=== PATIENT | female | born 1955 | race Caucasian/White ===

== ENCOUNTER → 2016-09-18 | Outpatient (REF) | payer OTHER ==
[~2016-09-18] MED LIST: AMOXIL875 PO; BACTRIMDS PO; CIPRO500 PO; DARVOCET-N PO; DIFLUC150 PO; MOTRIN800 PO; PYRIDIU100 PO; TUSSIONEX PO
== END ==
LOC: M LAB REF 16:12
PROVIDERS: ATTEND Physician Assistant
DX: N39.0 Urinary tract infection, site not specified (principal)

== ENCOUNTER → 2017-01-17 | Outpatient (REF) | payer OTHER | LOC: M LAB REF 14:51 | PROVIDERS: ATTEND Physician Assistant | DX: R30.0 Dysuria (principal) ==

== ENCOUNTER → 2020-04-13 | Outpatient (CLI) | payer BC, OTHER ==
[~2020-04-13] MED LIST changes: +PROHANCE 279.3MG/ML 5ML VIAL As Ordered ONE
--- NOTE | 2020-04-13 13:43 | REPVR ---
PROCEDURE INFORMATION: Exam: MR Head Without and With Contrast; Internal Auditory Canals Exam date and time: 04/13/2020 12:13 PM Age: 64 years old Clinical indication: Other: Dima sensory neuro hearing loss TECHNIQUE: Imaging protocol: MR of the head without and with intravenous contrast. Exam focused on the internal auditory canals. 3D rendering (Not supervised by radiologist): MIP and/or 3D reconstructed images were created by the technologist. Contrast material: PROHANCE; Contrast volume: 10 ml; Contrast route: INTRAVENOUS (IV); COMPARISON: No relevant prior studies available. FINDINGS: Brain: There is no extra-axial collection or intra-axial mass. There are foci of increased T2 and FLAIR signal within the periventricular and subcortical white matter, nonspecific but typically small-vessel ischemia in this age group. There is no diffusion restriction. There is no abnormal enhancement within the brain. Ventricles: No ventriculomegaly. Mastoid air cells: Unremarkable. No effusions. Internal auditory canals: The IAC's appear symmetric, without abnormal enhancement or mass. Bones/joints: Unremarkable. IMPRESSION: No acute abnormality. Electronically signed by: Lyubov Houser On 04/13/2020 13:43:34 PM
== END ==
LOC: M RAD 10:47
PROVIDERS: ATTEND Specialist
DX: H90.3 Sensorineural hearing loss, bilateral (principal)
CPT/HCPCS: 70553; A9576

== ENCOUNTER → 2022-04-23 | Outpatient (CLI) | payer OTHER ==
[~2022-04-23] MED LIST changes: -PROHANCE 279.3MG/ML 5ML VIAL As Ordered ONE
== END ==
LOC: M PLAIMG 07:42
PROVIDERS: ATTEND Physician Assistant
DX: M47.896 Other spondylosis, lumbar region (principal); M51.26 Other intervertebral disc displacement, lumbar region

== ENCOUNTER → 2022-06-03 | Outpatient (CLI) | payer MEDICARE, OTHER | LOC: M PLAIMG 10:20 | PROVIDERS: ATTEND Ophthalmology | DX: H53.8 Other visual disturbances (principal); G31.9 Degenerative disease of nervous system, unspecified ==